=== PATIENT | female | born 1960 | race Two or more races ===

== ENCOUNTER 2021-04-20 10:02 | Outpatient (AMBR) | payer OTHER, SELFPAY ==
--- NOTE | 2021-04-13 11:42 | PTNOTE_ITS ---
PT OP Initial Eval Patient Information Visit Reasons: right shoulder post op Medical Diagnosis: S46.091D Treatment Dx #1: Right Shoulder Mobility Deficits Treatment Dx #2: Right Shoulder Weakness Start of Care: 04/13/21 Date of Onset: 03/07/21 Initial Assessment Subjective Pt is a 61 y/o female s/p right shoulder decompression and bicep tenodesis secondary to previous shoulder injuries from a fall. Pt stated that surgeon was unable to repair her rotator cuff tear and may need another procedure in ~ 3 months. Pt still has a lot of pain (8/10) with all activities. Pt has limitation with chores, lifting, cooking, cleaning, overhead motions, recreational activities, and self care activities. Objective Right Shoulder PROM Flexion: 90 deg with pain Abduction: 90 deg with pain ER and IR: NT Right Shoulder AROM Flexion: 53 deg Abduction: 25 deg ER and IR: unable Right Shoulder MMTs: grossly 2-/5 Right Scapula MMTs: grossly 2-/5 Assessment Pt demonstrate right shoulder and strength deficits s/p shoulder surgery leading to decline function. Pt will benefit from physical therapy to increase strength, ROM, and work on shoulder stability. 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 1) Increase right shoulder PROM WFL in 12 wks to prevent frozen shoulder 2) Increase right shoulder AROM flexion to 90 def in 12 wks to be able to perform shoulder height activities 3) Decrease shoulder pain to 2/10 in 12 wks to be able to perform chores 4) Increase right shoulder MMTs grossly 3+/5 in 12 wks to be able to perform self care activities 5) Indep with HEP Treatment Plan 1) Manual Therapy 2) Therapeutic Activities 3) Therapeutic Exercises 4) Modalities (ice, heat, estim) Frequency and Duration 2 x wk for 12 wks Certification Dates: 04/13/21 to 07/14/21 Office Procedures PT Procedures PT Date of Service: 04/13/21 OP PT Eval Mod Complex 30 minutes: Yes
--- NOTE | 2021-04-17 12:53 | PT.ODAYNRPT ---
PT Outpatient Daily Note Date of Service: 04/17/21 OP Daily Note Visit Reasons: right shoulder post op Outpatient Physical Therapy Treatment Date: 04/17/21 Subjective: Pt still has difficulty with doing her hair. Pt mention that she can move her arms low but unable to go high Objective: Please see flow chart for list of ther ex performed Assessment: tolerate exercises with minimal pain; post ice decrease shoulder pain and soreness Plan: Continue with PT Length of Time (minutes) of Treatment: 30 Minutes Office Procedures PT Procedures PT Date of Service: 04/13/21 OP PT Eval Mod Complex 30 minutes: Yes PT Procedures PT Date of Service: 04/17/21 Therapeutic Exercise 30 minutes: Yes
--- NOTE | 2021-04-20 11:35 | PT.ODAYNRPT ---
PT Outpatient Daily Note Date of Service: 04/20/21 OP Daily Note Visit Reasons: right shoulder post op Outpatient Physical Therapy Treatment Date: 04/20/21 Subjective: Pt still has difficulty with lifting her arm. Pt's pain is less and did feel better after last session Objective: Please see flow chart for list of ther ex performed Assessment: tolerate exercises with minimal pain; same exercises performed unable to attempt patsy due to pain with shoulder flexion beyond 30 deg Plan: Continue with PT Length of Time (minutes) of Treatment: 30 Minutes Office Procedures PT Procedures PT Date of Service: 04/13/21 OP PT Eval Mod Complex 30 minutes: Yes PT Procedures PT Date of Service: 04/20/21 Therapeutic Exercise 30 minutes: Yes PT Procedures PT Date of Service: 04/17/21 Therapeutic Exercise 30 minutes: Yes
== END 2021-04-25 23:59 | disposition home or self-care (01) ==
PROVIDERS: PCP Family Medicine; Referring Provider Family Medicine; Visit Provider Orthopaedic Surgery
DX: S46.091D Other injury of muscle(s) and tendon(s) of the rotator cuff of right shoulder, subsequent encounter (principal); M25.511 Pain in right shoulder; R53.1 Weakness; W19.XXXD Unspecified fall, subsequent encounter
CPT/HCPCS: 97110; 97162

== ENCOUNTER 2021-05-17 11:46 | Outpatient (AMBR) | payer OTHER, MEDICAID, SELFPAY ==
--- NOTE | 2021-05-01 10:04 | PT.ODAYNRPT ---
PT Outpatient Daily Note Date of Service: 05/01/21 OP Daily Note Visit Reasons: right shoulder post op Outpatient Physical Therapy Treatment Date: 05/01/21 Subjective: Pt reported sore from last time in the shoulder Shoulder was burning mainly on the surgical site Objective: Please see flowsheet for therex performed Assessment: Even though pt reported soreness in shoulder, today's focus was still on increasing PROM flexion and abduction as well as isometric strengthening. Pt responded well to passive movements in both directions with minimal pain or discomfort. Plan: Cont. w/ POC Length of Time (minutes) of Treatment: 30 Minutes Office Procedures PT Procedures PT Date of Service: 05/01/21 Therapeutic Exercise 30 minutes: Yes
--- NOTE | 2021-05-17 10:11 | PT.ODAYNRPT ---
PT Outpatient Daily Note Date of Service: 05/17/21 OP Daily Note Visit Reasons: right shoulder post op Outpatient Physical Therapy Treatment Date: 05/17/21 Subjective: Feeling good. Doc said that I am doing really good. Objective: Manual; PROM FLX, ABD, ER - 7min please see flowsheet for therex performed Assessment: Pt tolerated therex well with good activity tolerance. Increased resistance to bicep curls, digiflex, and clip from yellow to green due to increased strength. Pt performed all reps and sets on all exercises except Isometric ABD due to fatigue. Plan: continue with POC Length of Time (minutes) of Treatment: 30 Minutes Office Procedures PT Procedures PT Date of Service: 05/17/21 Therapeutic Exercise 30 minutes: Yes PT Procedures PT Date of Service: 05/01/21 Therapeutic Exercise 30 minutes: Yes
== END 2021-05-26 23:59 | disposition home or self-care (01) ==
PROVIDERS: PCP Orthopaedic Surgery; Referring Provider Orthopaedic Surgery; Visit Provider Orthopaedic Surgery
DX: S46.091D Other injury of muscle(s) and tendon(s) of the rotator cuff of right shoulder, subsequent encounter (principal); M25.561 Pain in right knee; R53.1 Weakness; W19.XXXD Unspecified fall, subsequent encounter
CPT/HCPCS: 97110

== ENCOUNTER 2021-06-20 11:09 | Outpatient (AMBR) | payer OTHER, MEDICAID, SELFPAY ==
--- NOTE | 2021-05-31 10:02 | PT.ODAYNRPT ---
PT Outpatient Daily Note Date of Service: 05/31/21 OP Daily Note Visit Reasons: RIGHT SHOULDER POST OP Outpatient Physical Therapy Treatment Date: 05/31/21 Subjective: pt states she can't comb her hair or do much with her shoulder. pt continues to have pain of the shoulder. Objective: see flow sheet. Assessment: observed pt during pendulums exercise and she has difficulty relaxing the shoulder in order to let the momentum flow. she is very guarded. attempted wand exercises within the ROM she has but was not able to lift more than 20 degrees from her lap due to complaints of pain. pt has pain all throughout treatment. Plan: continue POC per PT. Length of Time (minutes) of Treatment: 30 Minutes Office Procedures PT Procedures PT Date of Service: 05/31/21 Therapeutic Exercise 30 minutes: Yes
--- NOTE | 2021-06-04 13:07 | PT.ODAYNRPT ---
PT Outpatient Daily Note Date of Service: 06/04/2021 OP Daily Note Visit Reasons: RIGHT SHOULDER POST OP Outpatient Physical Therapy Treatment Date: 06/04/21 Subjective: pt states her helps her comb her hair due to pain and limited ROM of the RUE. Objective: see flow sheet. Assessment: pt has pain and discomfort of the R shoulder with all treatment. she can do the hand strengthening with no difficulty but when it involves her shoulder mobility she hesitates due to pain. with her wall slides stretch she is able to reach further up on the wall increasing her flexion ROM. Plan: continue POC per PT. Length of Time (minutes) of Treatment: 30 Minutes Office Procedures PT Procedures PT Date of Service: 05/31/21 Therapeutic Exercise 30 minutes: Yes PT Procedures PT Date of Service: 06/04/21 Therapeutic Exercise 30 minutes: Yes
--- NOTE | 2021-06-07 10:41 | PT.ODAYNRPT ---
PT Outpatient Daily Note Date of Service: 06/07/2021 OP Daily Note Visit Reasons: RIGHT SHOULDER POST OP Outpatient Physical Therapy Treatment Date: 06/07/21 Subjective: pt came in with pain of the shoulder. pt mentions other health issues she has and has not been eating. Objective: see flow sheet. Assessment: she used 2# weight for her biceps in which she had no difficulty with. her shoulder continues to cause pain with every motion. she is guarded due to pain. she is aware of her limitations. her flexion ROM with wall slides is good but that is the only she can do due to pain. Plan: continue POC per PT. Length of Time (minutes) of Treatment: 30 Minutes Office Procedures PT Procedures PT Date of Service: 05/31/21 Therapeutic Exercise 30 minutes: Yes PT Procedures PT Date of Service: 06/04/21 Therapeutic Exercise 30 minutes: Yes PT Procedures PT Date of Service: 06/07/21 Therapeutic Exercise 30 minutes: Yes
--- NOTE | 2021-06-20 12:58 | PT.ODS1RPT ---
PT OP Progress/Discharge Note Date of Service: 06/20/21 Progress Note/DC Note Progress Note/Discharge Note: DC Note Patient Information Visit Reasons: RIGHT SHOULDER POST OP Medical Diagnosis: S46.091D Treatment Dx #1: Right Shoulder Mobility Deficits Treatment Dx #2: Right Shoulder Weakness Service Continue Service or Discharge: Discharge Discharge Date: 06/20/21 Status Subjective: Pt's shoulder feels much better with less pain (3/10). Pt mention that she's been able to perform ADLs up to shoulder height. Pt has been able to perform self care, lift, cook, clean, and take care of her grandkids. Pt will be seeing the surgeon in a few weeks. At this time Pt feels comfortable being release from care with exercises to continue at home. Objective: Right Shoulder PROM Flexion: 150 deg Abduction: 90 deg External Rotation: 80 deg Internal Rotation: 70 deg Right Shoulder AROM Flexion: 110 deg Abduction: 80 deg External Rotation: 60 deg Internal Rotation: 70 deg Right Shoulder MMTs: grossly 3/5 Right Scapula MMTs: grossly 3/5 Assessment: Pt's overall shoulder ROM and strength has improved since starting physical therapy allowing her to perform shoulder height ADLs, chores, and self care activities. Pt will no longer benefit from physical therapy due to meeting set goals. Pt was instructed on HEP last session and educated to continue exercises to maintain overall mobility. Pt performed all exercises safely, thank you for your referrals. Plan: D/C home with HEP and follow up with MD DE LA PAZ Office Procedures PT Procedures PT Date of Service: 05/31/21 Therapeutic Exercise 30 minutes: Yes PT Procedures PT Date of Service: 06/04/21 Therapeutic Exercise 30 minutes: Yes PT Procedures PT Date of Service: 06/07/21 Therapeutic Exercise 30 minutes: Yes PT Procedures PT Date of Service: 06/20/21 Therapeutic Exercise 30 minutes: Yes
== END 2021-06-26 23:59 | disposition home or self-care (01) ==
PROVIDERS: PCP Orthopaedic Surgery; Referring Provider Orthopaedic Surgery; Visit Provider Orthopaedic Surgery
DX: S46.091D Other injury of muscle(s) and tendon(s) of the rotator cuff of right shoulder, subsequent encounter (principal); M25.511 Pain in right shoulder; R53.1 Weakness; W19.XXXD Unspecified fall, subsequent encounter
CPT/HCPCS: 97110

== ENCOUNTER → 2024-09-29 | Outpatient (CLI) | payer OTHER, MEDICAID, SELFPAY ==
--- NOTE | 2024-09-29 15:36 | XR_ITS ---
Examination: Abdomen AP single view Technique: AP portable supine abdomen, single view Exam date and time: September 29, 2024 1544 hours INDICATIONS: Epigastric pain beginning 2 years ago. FINDINGS: Moderate to large amounts of stool throughout the colon No obstruction Surgical clips upper right abdomen No free air IMPRESSION: Moderate to large amounts of stool throughout the colon
[2024-09-29 16:17] LABS: Collection Type, Urine Clean Catch
[2024-09-29 16:54] LABS: Basophils # (Auto) 0.1 Thou/mm3 (0.0-0.2); Basophils % (Auto) 1 % (0-2.5); Eosinophils # (Auto) 0.2 Thou/mm3 (0.0-0.5); Eosinophils % (Auto) 2 % (0-10); Hematocrit 41.3 % (36.0-46.0); Hemoglobin 13.6 g/dL (12.0-16.0); Immature Granulocytes % (Auto) 1 % (0-0); Immature Granulocytes Auto 0.06 Thou/mm3 (0.00-0.00); Lymphocytes # (Auto) 4.5 Thou/mm3 (1.0-4.8); Lymphocytes % (Auto) 37 % (10-50); Mean Corpuscular HGB Conc 32.9 g/dl (31.0-37.0); Mean Corpuscular Hemoglobin 27.5 pg (25.0-35.0); Mean Corpuscular Volume 84 fL (80-100); Monocytes # (Auto) 0.9 Thou/mm3 (0.0-0.8); Monocytes % (Auto) 7 % (0-12); Neutrophils # (Auto) 6.3 Thou/mm3 (1.8-7.7); Neutrophils % (Auto) 53 % (37-80); Nucleated Red Blood Cell % 0 /100 WBC (0); Platelet Count 251 Thou/mm3 (140-440); RDW Standard Deviation 42.4 fL (36.4-46.3); Red Blood Count 4.94 Miln/mm3 (4.00-5.20); White Blood Count 11.9 Thou/mm3 (3.6-11.0)
[2024-09-29 17:05] LABS: Amylase 64 U/L (30-118); Lipase 33 U/L (12-53)
[2024-09-29 17:06] LABS: Bilirubin,Urine Negative (Negative); Blood,Urine Negative (Negative); Clarity,Urine Clear (Clear/Hazy); Color,Urine Lt-Yellow (Lt Yel-Yel); Glucose, Urine 4+ (Negative); Ketones,Urine Negative (Negative); Leukocyte Esterase,Urine Negative (Negative); Nitrite,Urine Negative (Negative); Protein,Urine Negative (Neg - Trace); RBC,Urine 13 /hpf (0-3); Specific Gravity,Urine 1.045 (1.001-1.035); Squamous Epithelial Cell,Urine < 1 /hpf (0-5); Urobilinogen,Urine Negative mg/dL (0.0-1.0); WBC,Urine 2 /hpf (0-5)
== END | disposition home or self-care (01) ==
LOC: CDIM 15:24 → COPL 15:53
PROVIDERS: PCP Student in an Organized Health Care Education/Training Program; Referring Provider Specialist; Visit Provider Radiology Diagnostic Radiology
DX: K59.00 Constipation, unspecified (principal); R10.9 Unspecified abdominal pain
CPT/HCPCS: 36415; 74018; 81001; 82150; 83690; 85025

== ENCOUNTER 2024-10-01 07:45 | Day surgery (SDC) | payer OTHER, MEDICAID, SELFPAY ==
[2024-09-30 14:42] VITALS: BMI 32.1
[2024-10-01 08:25] VITALS: BP 127/84; PULSE 85; RESP 20; TEMP 36.7; O2SAT 94; BMI 33.0
--- NOTE | 2024-10-01 08:25 | SUR.PREOP ---
Patient reports that she administered Lantus 30 units SQ this morning. Blood glucose 139m mg/dL. She denies s/s of hypoglycemia.
[2024-10-01 09:30] VITALS: BP 152/95; PULSE 88; RESP 22; O2SAT 92
[2024-10-01] MEDS: MIDAZOLAM INJ 1 MG/ML VIAL 2 ML (ASD USE ONLY) 2 MG IV (09:31)
[2024-10-01] MEDS: fentaNYL CIT INJ 50 mCg/ML AMP 2ML (ASD USE ONLY) IV (09:31)
[2024-10-01] MEDS: DiphenhydrAMINE INJ 50 MG/ML VIAL 25 MG IV (09:31)
[2024-10-01 09:35] VITALS: BP 158/111; PULSE 85; RESP 13; O2SAT 95
[2024-10-01 09:45] VITALS: BP 136/88; PULSE 87; RESP 15; TEMP 36.6; O2SAT 93
[2024-10-01 09:55] VITALS: BP 140/89; PULSE 85; RESP 12; O2SAT 98
[2024-10-01 10:05] VITALS: BP 138/85; PULSE 85; RESP 15; O2SAT 95
== END 2024-10-01 10:30 | disposition home or self-care (01) ==
PROVIDERS: PCP Family Medicine; Referring Provider Specialist; Visit Provider Specialist
PROC: (CPT 43239; principal; 2024-10-01 10:45)
DX: K20.90 Esophagitis, unspecified without bleeding (principal); K29.70 Gastritis, unspecified, without bleeding; K29.50 Unspecified chronic gastritis without bleeding; K31.89 Other diseases of stomach and duodenum
CPT/HCPCS: 43239; A4649; J1200; J2250; J3010

== ENCOUNTER 2024-10-14 06:35 | Day surgery (SDC) | payer OTHER, MEDICAID, SELFPAY ==
[2024-10-12 09:15] VITALS: BMI 32.1
[2024-10-13 12:00] LABS: Basophils # (Auto) 0.1 Thou/mm3 (0.0-0.2); Basophils % (Auto) 1 % (0-2.5); Eosinophils # (Auto) 0.2 Thou/mm3 (0.0-0.5); Eosinophils % (Auto) 2 % (0-10); Hematocrit 45.6 % (36.0-46.0); Immature Granulocytes % (Auto) 0 % (0-0); Immature Granulocytes Auto 0.04 Thou/mm3 (0.00-0.00); Lymphocytes # (Auto) 3.4 Thou/mm3 (1.0-4.8); Lymphocytes % (Auto) 38 % (10-50); Mean Corpuscular HGB Conc 32.9 g/dl (31.0-37.0); Mean Corpuscular Hemoglobin 27.4 pg (25.0-35.0); Mean Corpuscular Volume 83 fL (80-100); Monocytes # (Auto) 0.7 Thou/mm3 (0.0-0.8); Monocytes % (Auto) 8 % (0-12); Neutrophils # (Auto) 4.5 Thou/mm3 (1.8-7.7); Neutrophils % (Auto) 50 % (37-80); Nucleated Red Blood Cell % 0 /100 WBC (0); Platelet Count 240 Thou/mm3 (140-440); RDW Standard Deviation 42.8 fL (36.4-46.3); Red Blood Count 5.47 Miln/mm3 (4.00-5.20); White Blood Count 8.9 Thou/mm3 (3.6-11.0)
[2024-10-13 12:06] LABS: Anion Gap 9 (7-16); BUN/Creatinine Ratio 30 Ratio (12-20); Blood Urea Nitrogen 18 mg/dL (9-23); Calcium 9.6 mg/dL (8.3-10.6); Carbon Dioxide 26.1 mMol/L (20.0-31.0); Chloride 104 mMol/L (98-107); Creatinine (Component) 0.6 mg/dL (0.6-1.3); Estimated Creatinine Clearance 87.8 mL/min (>60); Glucose 159 mg/dL (74-106); Osmolality,Calculated 282 (275-295); Partial Thromboplastin Time 27.1 Seconds (22.0-36.0); Potassium 3.9 mMol/L (3.4-5.1); Prothrombin Time 10.9 Seconds (9.0-12.2); Sodium 139 mMol/L (136-145); eGFR > 60 See Note
[2024-10-13 12:26] LABS: COVID-19 Antigen (In-House) Negative (Negative)
[2024-10-14] VITALS (17 sets, daily range): BP systolic 121–164; BP diastolic 77–105; PULSE 85–95; RESP 12–90; TEMP 36.5–36.7; O2SAT 92–98
[2024-10-14] MEDS: DIAZEPAM 5 MG TABLET PO (07:31)
--- NOTE | 2024-10-14 08:10 | PD.CARDCATH ---
Cardiac Cath Procedure Procedure Narrative Date of the procedure 10/14/2024 Title of the procedure 1. Left heart catheterization 2. Left coronary angiogram 3. Right coronary angiogram 4. Left ventriculogram 5. Conscious sedation 6. Radiographic interpretation supervision 7. Ultrasound guidence for Right radial access Indication for the procedure This is a 64-year-old female with past medical history of hypertension hyperlipidemia and diabetes complains of atypical recurrent chest pain Cardiolite scan was equivocal therefore cardiac catheter and cholangiogram recommended in view of her multiple risk factors and ongoing chest pain Procedure This is done in the cardiac lab under continuous electrocardiographic monitoring Intermittent blood pressure monitoring right radial arterial access obtained using modified Seldinger technique 6 [place] radial sheath was placed under ultrasound guidence TIG catheter was used for selective injection of the Left coronary artery TIG cather was used for selective injection of the Right coroanry artery TIG cather was used for LV gram Findings Hemodynamics Left ventricular systolic function is 55% Left ventricular end-diastolic pressure is 16 mmHg Gradient across the aortic valve is 5 mm gradient Coronary anatomy Right Dominance Left main coronary artery is Normal Left anterior descending artery is Distal luminal irregularities close to the apex Diagonal vessel is Luminal regularities Left circumflex artery is Normal Obtuse marginal vessel is Luminal regularities Right coronary artery is Has an anterior takeoff, mid segment 30% lesion Posterior descending artery is Luminal regularities Conclusion No significant coronary lesion Recommendation Continue medical management
[2024-10-14] MEDS: ACETAMINOPHEN 325 MG TABLET 650 MG PO (10:35)
== END 2024-10-14 11:55 | disposition home or self-care (01) ==
PROVIDERS: PCP Student in an Organized Health Care Education/Training Program; Referring Provider Internal Medicine; Visit Provider Internal Medicine
PROC: (CPT 93458; principal; 2024-10-14 07:30)
DX: I25.118 Atherosclerotic heart disease of native coronary artery with other forms of angina pectoris (principal); E11.9 Type 2 diabetes mellitus without complications; E78.5 Hyperlipidemia, unspecified; I10 Essential (primary) hypertension
CPT/HCPCS: 93458; 36415; 80048; 85025; 85610; 85730; 87811; 93005; 99152; A4216; A4649; C1769; C1887; C1894; J0171; J0461; J0583; J1643; J2250; J2310; J2371; J3010; J3490; Q9967; A9270; J1644; J2305

== ENCOUNTER → 2024-11-18 | Outpatient (CLI) | payer OTHER, MEDICAID, SELFPAY ==
[2024-11-18 16:33] LABS: Glucose Estimated Average 301 mg/dL (80-131); Hemoglobin A1C 12.1 % Hgb (4.8-6.0)
[2024-11-18 16:39] LABS: Alanine Aminotransferase 14 U/L (10-49); Albumin, Serum 4.5 gm/dL (3.4-4.8); Albumin/Globulin Ratio 1.8 (1.2-2.2); Alkaline Phosphatase 100 U/L (46-116); Anion Gap 9 (7-16); Aspartate Amino Transferase 19 U/L (0-34); BUN/Creatinine Ratio 27 Ratio (12-20); Bilirubin,Total 0.4 mg/dL (0.3-1.2); Blood Urea Nitrogen 16 mg/dL (9-23); Calcium 9.4 mg/dL (8.3-10.6); Calcium (Corrected) 9.4 mg/dL (8.5-10.1); Carbon Dioxide 31.1 mMol/L (20.0-31.0); Chloride 103 mMol/L (98-107); Cholesterol 169 mg/dL (132-200); Creatinine (Component) 0.6 mg/dL (0.6-1.3); Globulin 2.5 gm/dL (2.3-3.5); Glucose 93 mg/dL (74-106); HDL Cholesterol 56 mg/dL (40-60); LDL Cholesterol,Calculated 77 mg/dL (0-130); Osmolality,Calculated 286 (275-295); Potassium 3.7 mMol/L (3.4-5.1); Sodium 143 mMol/L (136-145); Triglycerides 180 mg/dL (30-150); eGFR > 60 See Note
== END | disposition home or self-care (01) ==
LOC: COPL 14:15
PROVIDERS: PCP Student in an Organized Health Care Education/Training Program; Referring Provider Student in an Organized Health Care Education/Training Program; Visit Provider Student in an Organized Health Care Education/Training Program
DX: E11.65 Type 2 diabetes mellitus with hyperglycemia (principal); I10 Essential (primary) hypertension; E78.2 Mixed hyperlipidemia
CPT/HCPCS: 36415; 80053; 80061; 83036

== ENCOUNTER → 2024-12-21 | Outpatient (CLI) | payer OTHER, SELFPAY ==
[2024-12-21 11:05] LABS: Collection Type, Urine Clean Catch; Squamous Epithelial Cell,Urine 0 /hpf (0-5)
[2024-12-21 11:29] LABS: Basophils # (Auto) 0.1 Thou/mm3 (0.0-0.2); Basophils % (Auto) 1 % (0-2.5); Eosinophils # (Auto) 0.2 Thou/mm3 (0.0-0.5); Eosinophils % (Auto) 3 % (0-10); Hematocrit 44.3 % (36.0-46.0); Hemoglobin 14.3 g/dL (12.0-16.0); Immature Granulocytes % (Auto) 0 % (0-0); Immature Granulocytes Auto 0.02 Thou/mm3 (0.00-0.00); Lymphocytes # (Auto) 3.4 Thou/mm3 (1.0-4.8); Lymphocytes % (Auto) 39 % (10-50); Mean Corpuscular HGB Conc 32.3 g/dl (31.0-37.0); Mean Corpuscular Hemoglobin 27.8 pg (25.0-35.0); Mean Corpuscular Volume 86 fL (80-100); Monocytes # (Auto) 0.7 Thou/mm3 (0.0-0.8); Monocytes % (Auto) 8 % (0-12); Neutrophils # (Auto) 4.5 Thou/mm3 (1.8-7.7); Neutrophils % (Auto) 50 % (37-80); Nucleated Red Blood Cell % 0 /100 WBC (0); Platelet Count 229 Thou/mm3 (140-440); RDW Standard Deviation 43.5 fL (36.4-46.3); Red Blood Count 5.15 Miln/mm3 (4.00-5.20); White Blood Count 8.8 Thou/mm3 (3.6-11.0)
[2024-12-21 11:33] LABS: Partial Thromboplastin Time 27.5 Seconds (22.0-36.0); Prothrombin Time 10.9 Seconds (9.0-12.2)
[2024-12-21 11:33] LABS: Bilirubin,Urine Negative (Negative); Blood,Urine Negative (Negative); Clarity,Urine Clear (Clear/Hazy); Color,Urine Lt-Yellow (Lt Yel-Yel); Glucose, Urine 4+ (Negative); Ketones,Urine Negative (Negative); Leukocyte Esterase,Urine Negative (Negative); Nitrite,Urine Negative (Negative); Protein,Urine Negative (Neg - Trace); RBC,Urine 2 /hpf (0-3); Specific Gravity,Urine 1.032 (1.001-1.035); Urobilinogen,Urine Negative mg/dL (0.0-1.0); WBC,Urine 1 /hpf (0-5)
[2024-12-21 13:25] LABS: Glucose Estimated Average 269 mg/dL (80-131)
[2024-12-21 13:33] LABS: Creatinine,Random Urine 58 mg/dL (30-125); Protein Total, Random Urine 8 mg/dL (1-14)
[2024-12-21 13:34] LABS: Folate 22.52 ng/mL (>5.38); Vitamin B12 548 pg/mL (211-911); Vitamin D 25 Hydroxy Total 33.2 ng/mL (7.3-40.2)
[2024-12-21 13:46] LABS: Alanine Aminotransferase 14 U/L (10-49); Albumin, Serum 4.2 gm/dL (3.4-4.8); Albumin/Globulin Ratio 1.5 (1.2-2.2); Anion Gap 8 (7-16); Aspartate Amino Transferase 19 U/L (0-34); BUN/Creatinine Ratio 25 Ratio (12-20); Bilirubin,Total 0.3 mg/dL (0.3-1.2); Blood Urea Nitrogen 15 mg/dL (9-23); Calcium 9.6 mg/dL (8.3-10.6); Calcium (Corrected) 9.6 mg/dL (8.5-10.1); Carbon Dioxide 31.5 mMol/L (20.0-31.0); Cardiac Risk Estimate 3.5 RATIO (3.7-5.6); Chloride 104 mMol/L (98-107); Cholesterol 193 mg/dL (132-200); Creatinine (Component) 0.6 mg/dL (0.6-1.3); Free T4 (Free Thyroxine) 1.41 ng/dL (0.89-1.76); Globulin 2.8 gm/dL (2.3-3.5); Glucose 84 mg/dL (74-106); HDL Cholesterol 55 mg/dL (40-60); LDL Cholesterol,Calculated 75 mg/dL (0-130); Osmolality,Calculated 284 (275-295); Potassium 4.1 mMol/L (3.4-5.1); Sodium 143 mMol/L (136-145); Triglycerides 313 mg/dL (30-150); eGFR > 60 See Note
[2024-12-21 14:29] LABS: Alkaline Phosphatase 88 U/L (46-116)
== END | disposition home or self-care (01) ==
LOC: COPL 10:25
PROVIDERS: PCP Student in an Organized Health Care Education/Training Program; Referring Provider Student in an Organized Health Care Education/Training Program; Visit Provider Student in an Organized Health Care Education/Training Program
DX: E11.65 Type 2 diabetes mellitus with hyperglycemia (principal); I10 Essential (primary) hypertension; E78.2 Mixed hyperlipidemia
CPT/HCPCS: 36415; 80053; 80061; 81001; 82306; 82570; 82607; 82746; 83036; 84156; 84439; 84443; 85025; 85610; 85730

== ENCOUNTER 2025-02-20 19:53 | Emergency (ER) | payer OTHER, MEDICAID, SELFPAY ==
[2025-02-20 19:54] VITALS: BMI 33.2
--- NOTE | 2025-02-20 19:59 | EKG_ITS ---
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
[2025-02-20 20:06] VITALS: BP 164/88; PULSE 87; RESP 24; TEMP 37.2; O2SAT 95
--- NOTE | 2025-02-20 20:21 | PD.EDRME ---
Rapid Medical Screening Exam RME Arrival date/time: 02/20/25 19:53 Chief Complaint: Chest Pain Time Seen by Provider: 02/20/25 20:12 Vital signs: Vital Signs Temperature 99.0 F 02/20/25 20:06 Pulse Rate 87 02/20/25 20:06 Respiratory Rate 24 H 02/20/25 20:06 Blood Pressure 164/88 H 02/20/25 20:06 Pulse Oximetry (%) 95 02/20/25 20:06 Oxygen Delivery Method Room Air 02/20/25 20:06 E Narrative: Chest pain, shortness of breath x3 days worsening today. Also reports lower back pain.
--- NOTE | 2025-02-20 20:22 | XR_ITS ---
Examination: AP chest single view Technique with a V portable upright chest single view Standing time: February 20, 20252047 hours INDICATIONS: Chest pain shortness of breath today FINDINGS: Suspicious for mild pneumonia right base No significant cardiac enlargement Mild prominent central pulmonary arteries Intact osseous structures IMPRESSION: Suspicious for early pneumonia right base
[2025-02-20 20:41] VITALS: BP 186/123; PULSE 88; RESP 19; O2SAT 97
--- NOTE | 2025-02-20 20:47 | PD.EDADULT ---
ED General RME/HPI General Chief complaint: Chest Pain Stated complaint: CHEST PAIN, SOB X 2 DAYS WORSEN TODAY Time Seen by Provider: 02/20/25 20:12 Arrival date/time: 02/20/25 19:53 CC: Chest pain HPI site-specific the left anterior chest onset the yesterday, the worsening. Patient has no prior history of similar type chest pain. Chest pain is reproducible with palpation worse with deep inhalation or cough. Patient denies fever chills shortness of breath difficulty breathing but is also complaining of mid back pain. RME / HPI RME / HPI narrative: Chest pain, shortness of breath x3 days worsening today. Also reports lower back pain. Related Data Home Medications ?Medication ?Instructions ?Recorded ?Confirmed duloxetine 30 mg capsule,delayed 30 mg PO QDAY 02/24/23 10/14/24 release losartan 50 mg tablet (Cozaar) 50 mg PO QDAY 02/24/23 10/14/24 atorvastatin 80 mg tablet 80 mg PO QDAY 10/01/24 10/14/24 metformin 500 mg tablet 500 mg PO QDAY 10/01/24 10/14/24 Held on 10/14/24. Instructions: Resume on 10/16/24. amitriptyline 25 mg tablet 25 mg PO QDAY 10/14/24 10/14/24 amoxicillin 500 mg capsule 500 mg PO TID 10/14/24 10/14/24 aspirin 81 mg tablet 81 mg PO QDAY 10/14/24 10/14/24 docusate sodium 250 mg capsule 250 mg PO QDAY 10/14/24 10/14/24 empagliflozin 25 mg tablet 25 mg PO QAM 10/14/24 10/14/24 (Jardiance) fenofibrate 160 mg tablet 160 mg PO QDAY 10/14/24 10/14/24 insulin human U-100 NPH-regulr subcut 10/14/24 70-30 mix 100 unit/mL subcutaneous susp (Humulin 70/30 U-100 Insulin) pantoprazole 40 mg tablet,delayed 40 mg PO QDAY 10/14/24 10/14/24 release tramadol 50 mg tablet 50 mg PO Q6H PRN Pain 10/14/24 10/14/24 Previous Rx's ?Medication ?Instructions ?Recorded ibuprofen 800 mg tablet 800 mg PO TID PRN pain #30 tabs 07/25/23 cephalexin 500 mg capsule 500 mg PO TID #21 caps 02/21/25 Allergies Allergy/AdvReac Type Severity Reaction Status Date / Time No Known Allergies Allergy Verified 02/20/25 19:57 Review of Systems Review of Systems Narrative Review of Systems: GEN: No fever, no chills, no weight loss EYES: No discharge, no visual changes, no pain HEENT: No ear pain, no congestion, no sore throat PULM: No shortness of breath, no cough, no congestion CV: + chest pain, no dyspnea on exertion, no palpitations GI: No nausea, no vomiting, no diarrhea, no pain, no constipation : No frequency, no urgency, no dysuria MUSC/SKEL: No joint pain, no back pain SKIN: No rash PSYCH: No hallucinations, no depression HEME/LYMPH: No easy bleeding or bruising tendencies NEURO: No weakness, no headache Past Medical History Past Medical History NEUROLOGIC: Positive Seizures and Head Trauma; Negative Neurological Disorders or Migraine CARDIAC: Positive Cardiac Disorders, Hypercholesterolemia, Hypertension and Varicose Veins; Negative Congestive Heart Failure, Edema, Cellulitis or Deep Vein Thrombosis RESPIRATORY: Positive Bronchitis; Negative Chronic Obstructive Pulmonary Disease (COPD), Pneumonia, Tuberculosis, Pulmonary Embolism or Sleep Apnea GASTROINTESTINAL: Positive Gastrointestinal Disorders, Gall Bladder Disease (removed gall bladder), Diverticulitis, Hemorrhoids, Gastroesophageal Reflux Disease and Obesity; Negative Hepatitis or Ulcer (Denies) GENITOURINARY: Negative Genitourinary Disorders or Renal Disease REPRODUCTIVE: Positive Previous Pregnancies; Negative Pelvic Inflammatory Disease MUSCULOSKELETAL: Positive Musculoskeletal Disorders, Arthritis and Carpal Tunnel Syndrome ENT: Positive Cataracts and Head Trauma ENDOCRINE: Positive Endocrine Disorders and Diabetes Mellitus Type 2; Negative Diabetes Mellitus Type 1 or Hypothyroidism HEMATOLOGIC: Negative Blood Disorders or Anemia PSYCHO/SOCIAL: Positive Depression (from traumatic episode, per patient is better) and Anxiety ( ) OTHER HISTORY: Positive Hospitalization; Negative Autoimmune Disease, Down Syndrome, Developmental Delay, Shingles, Falls, Blood Transfusions, Anesthesia Reactions, Organ Transplant, Chemotherapy, Radiation Therapy, MRSA, Chicken Pox, Measles, Mumps, Clostridium Difficile or Cancer Family History FAMILY HISTORY: Positive Family Cardiac Disorders, Family Gastrointestinal Problems, Family Cancer and Family Surgery; Negative Family Psychiatric Problems, Family Respiratory Disorders or Family Anesthesia Reaction Surgical History SURGICAL: Positive Vascular Surgery (right leg per patient vein closed up), Eye Surgery, Abdominal Surgery, Hysterectomy, Tubal Ligation and Section; Negative Cardiac Surgery, Pacemaker, Thyroidectomy, Ear Surgery, Joint Replacement, Neurologic Surgery or Organ Transplant Social History SMOKING STATUS: Never smoker SUBSTANCE USE: does not use ED Exam Narrative Physical exam: [General: Obese in mild discomfort but not in any acute distress Head normocephalic HEENT: Within acceptable limits Neck is supple nontender Chest equal chest rise, site-specific tenderness to palpation to the costosternal junction left side mid sternum. No other pain with palpation. Respiratory: Clear to auscultation no wheezes crackles or rubs CV: Rate rhythm is regular no murmurs rubs or clicks Abdomen is distended secondary to body habitus soft nontender no masses positive bowel sounds all 4 quadrants Back: No CVA tenderness no spinous process tenderness from cervical spine thoracic and lumbar spine Skin: Intact no petechiae rash induration ulceration or crepitus Extremities: Moving all extremity against resistance cap refill less than 2 seconds neurosensory intact. No lower extremity edema Neuro: Awake alert oriented x3 Glascow coma 15 no focal deficits] Course Course Course Narrative: Patient has a heart score of 4 Quality Measures none Orders Category Date Time Status EKG (ED ONLY) *Do not use* NOW Care 02/20/25 19:59 Completed Saline [Insert IV] NOW Care 02/20/25 20:46 Completed CXR [XR chest 1V] Stat Exams 02/20/25 20:22 Completed EKG (ED Only) Stat Exams 02/20/25 19:59 Draft BNP [B-Type Natriuretic Peptide] Stat Lab 02/20/25 20:30 Completed CBC Stat Lab 02/20/25 20:30 Completed CMP [Comprehensive Metabolic Panel] Stat Lab 02/20/25 20:30 Completed Drug Screen,Urine Stat Lab 02/20/25 20:48 Completed LDH (Lactate Dehydrogenase) Stat Lab 02/20/25 20:30 Completed Magnesium Stat Lab 02/20/25 20:30 Completed Partial Thromboplastin Time Stat Lab 02/20/25 20:30 Completed Prothrombin Time with INR Stat Lab 02/20/25 20:30 Completed Troponin I Stat Lab 02/20/25 20:30 Completed Troponin I Stat Lab 02/20/25 23:27 Completed Urinalysis Stat Lab 02/20/25 20:48 Completed Ketorolac Inj [Toradol Inj] Med 02/20/25 20:46 Discontinued 15 mg IVP X1 ONE Morphine Inj Med 02/20/25 21:26 Discontinued 4 mg IVP X1 ONE Ondansetron Inj [Zofran Inj] Med 02/20/25 21:26 Discontinued 4 mg IV X1 ONE cefTRIAXone/D5w 1gm IV premix [Rocephin/D5w 1gm IV Med 02/21/25 01:09 Discontinued premix] 1 gm in 50 ml IV X1 Vital Signs Vital signs: Vital Signs Temperature 99.0 F 02/20/25 20:06 Pulse Rate 87 02/20/25 20:06 Respiratory Rate 24 H 02/20/25 20:06 Blood Pressure 164/88 H 02/20/25 20:06 Pulse Oximetry (%) 95 02/20/25 20:06 Oxygen Delivery Method Room Air 02/20/25 20:06 Discharge Plan Plan Patient Disposition: HOME (Self Care) Patient condition on transfer: Stable Prescriptions/Referrals Prescriptions/Med Rec: New cephalexin 500 mg capsule 500 mg PO TID Qty: 21 0RF No Action amoxicillin 500 mg Capsule 500 mg PO TID Humulin 70/30 U-100 Insulin 100 unit/mL (70-30) Suspension SUBCUT tramadol 50 mg Tablet 50 mg PO Q6H PRN (Reason: Pain) amitriptyline 25 mg Tablet 25 mg PO QDAY pantoprazole 40 mg Tablet,Delayed Release (Dr/Ec) 40 mg PO QDAY aspirin 81 mg Tablet 81 mg PO QDAY docusate sodium 250 mg Capsule 250 mg PO QDAY fenofibrate 160 mg Tablet 160 mg PO QDAY Jardiance 25 mg Tablet 25 mg PO QAM losartan [Cozaar] 50 mg Tablet 50 mg PO QDAY duloxetine 30 mg capsule,delayed release(DR/EC) 30 mg PO QDAY Patient Comments: TAKE 1 CAPSULE BY MOUTH ONCE A DAY DIRECTED ibuprofen 800 mg tablet 800 mg PO TID PRN (Reason: pain) Qty: 30 0RF metformin 500 mg Tablet 500 mg PO QDAY atorvastatin 80 mg tablet 80 mg PO QDAY Patient Comments: TOME 1 TABLETA POR V A ORAL TODOS LOS D AL ACOSTARSE Referrals: Kerry Brown NP [Primary Care Provider] - 02/24/25 (To get the results of the urine culture.) Problem List Clinical Impression: Atypical chest pain, Dysuria Patient/Caregiver Discharge Instructions Education Materials: Dysuria, ED Chest Pain, Uncertain Cause Additional Instructions: General Adult Discharge Instructions(Nicaraguan) Hugo ambrocio sido dado de franklyn del [facility] sin embargo hay algunas cosas que debe hacer para asegurarse de que usted continue recibiendo el cuidado adecuado. Por favor jose las siguientes instrucciones con atenci?n: 1. Si es que le dieron alguna prescripci?n (medicamento), asegurese de ir a la farmacia de cabrales preferencia, llenar el medicamento y tomarlo conforme a las instrucciones. 2. Leas las instrucciones de franklyn con mucho cuidado dado que contienen informaci?n importante para cabrales radha y cuidado.3. REGRESE AL [facility]O DE [facility]GENCIA SI tiene alg?n tipo de problema o preocupaci?n. [facility] incluye dirk no esta limitado a fiebre, mucho dolor abdominal, dolor de pecho, mucho dolor de sho, falta de aire, sangrado incontrolable, nauseas o vomitos incontrolables, inhabilidad de tolerar alimentos, o cualquier otro tipo de condici?n que le donnell cuestionar cabrales radha. 4. Asegurese de seguir con cabrales medico primario (tambien llamado medico de carlitos) o con el medico especialista que le indicaron al momento del franklyn en 3 a 5 orozco dado que esta es la mejor manera de asegurar que luan recibiendo el mejor cuidado medico. 5. Si es que tiene un telefono inteligente (smartphone) revise la pagina web o aplicaci?n GoodRx antes de pagar por lam prescripciones (medicinas) dado que asi podr?a encontrar un cup?n para que lam medicinas jarrett menos costosas. El servicio es gratuito. Le agradecemos cabrales visita el bharti de sharla y esperamos que cabrales radha mejore. Please follow-up with your primary care in the next 72 hours we can get the results of the urine culture please Print Language: Nicaraguan Stand Alone Forms: [employer]ura Award Info., Patient Portal Info Letter MDM Patient Acuity High Acuity (complete MDM) Narrative: Patient has a history of diabetes hypertension hyperlipidemia with a workup for chest pain in September, for the same complaint. All of which was negative. Clinical Information Provided by: patient and spouse Medical Records reviewed [facility] EKG EKG Interpretation(s): EKG performed at 2001 shows a ventricular rate of 88 IL interval 146 QRS of 86 QTc of 425 sinus rhythm borderline EKG. Labs Lab(s) Interpretation(s): CBC shows no acute leukocytosis anemia thrombocytopenia Coags within acceptable limits CMP shows no [place] electrolyte imbalances elevated glucose at 352 no transaminitis or T. bili elevation Troponin at 0.034 BNP at 62 Urine shows a spec gravity 1.0424+ glucose no signs of infection UDS is negative Imaging Imaging Interpretation(s): Chest x-ray is interpreted by radiology shows a questionable right lower lobe pneumonia. Note: Patient has no respiratory symptoms including cough fever chills shortness of breath or difficulty breathing no leukocytosis. Medication Administration(s) Medication Administration History Discontinued Medications Ceftriaxone Sodium/Dextrose (Rocephin/D5w 1gm Iv Premix) 1 gm in 50 mls @ 100 mls/hr IV X1 ONE Stop: 02/21/25 01:38 Last Admin: 02/21/25 01:15 Dose: 100 mls/hr Documented By: ALBERT Ketorolac Tromethamine (Ketorolac Inj 30 Mg/Ml Vial) 15 mg IVP X1 ONE Stop: 02/20/25 20:47 Last Admin: 02/20/25 21:00 Dose: 15 mg Documented By: ALBERT Morphine Sulfate (Morphine Sulf Inj 10 Mg/Ml Vial) 4 mg IVP X1 ONE Stop: 02/20/25 21:27 Last Admin: 02/20/25 21:45 Dose: 4 mg Documented By: ALBERT Ondansetron HCl (Ondansetron Inj 2 Mg/Ml Inj 2 Ml) 4 mg IV X1 ONE; Protocol Stop: 02/20/25 21:27 Last Admin: 02/20/25 21:46 Dose: 4 mg Documented By: ALBERT
[2025-02-20 20:56] LABS: Collection Type, Urine Clean Catch; RBC,Urine 0 /hpf (0-3); Squamous Epithelial Cell,Urine 0 /hpf (0-5); WBC,Urine 0 /hpf (0-5)
[2025-02-20 20:57] LABS: B-Type Natriuretic Peptide 62 pg/mL (0-100)
[2025-02-20 20:59] LABS: Alanine Aminotransferase 32 U/L (10-49); Albumin, Serum 4.2 gm/dL (3.4-4.8); Albumin/Globulin Ratio 1.5 (1.2-2.2); Alkaline Phosphatase 89 U/L (46-116); Anion Gap 7 (7-16); Aspartate Amino Transferase 27 U/L (0-34); BUN/Creatinine Ratio 16 Ratio (12-20); Basophils # (Auto) 0.1 Thou/mm3 (0.0-0.2); Basophils % (Auto) 1 % (0-2.5); Bilirubin,Total 0.5 mg/dL (0.3-1.2); Blood Urea Nitrogen 13 mg/dL (9-23); Calcium 9.6 mg/dL (8.3-10.6); Calcium (Corrected) 9.6 mg/dL (8.5-10.1); Chloride 106 mMol/L (98-107); Creatinine (Component) 0.8 mg/dL (0.6-1.3); Eosinophils # (Auto) 0.2 Thou/mm3 (0.0-0.5); Eosinophils % (Auto) 3 % (0-10); Estimated Creatinine Clearance 63.5 mL/min (>60); Globulin 2.8 gm/dL (2.3-3.5); Glucose 352 mg/dL (74-106); Hematocrit 40.4 % (36.0-46.0); Hemoglobin 13.4 g/dL (12.0-16.0); Immature Granulocytes % (Auto) 0 % (0-0); Immature Granulocytes Auto 0.03 Thou/mm3 (0.00-0.00); LDH (Lactate Dehydrogenase) 233 U/L (120-246); Lymphocytes # (Auto) 3.6 Thou/mm3 (1.0-4.8); Lymphocytes % (Auto) 41 % (10-50); Magnesium 1.9 mg/dL (1.6-2.6); Mean Corpuscular HGB Conc 33.2 g/dl (31.0-37.0); Mean Corpuscular Hemoglobin 28.2 pg (25.0-35.0); Mean Corpuscular Volume 85 fL (80-100); Monocytes # (Auto) 0.7 Thou/mm3 (0.0-0.8); Monocytes % (Auto) 9 % (0-12); Neutrophils # (Auto) 4.1 Thou/mm3 (1.8-7.7); Neutrophils % (Auto) 47 % (37-80); Nucleated Red Blood Cell % 0 /100 WBC (0); Osmolality,Calculated 297 (275-295); Platelet Count 225 Thou/mm3 (140-440); Potassium 3.6 mMol/L (3.4-5.1); RDW Standard Deviation 43.6 fL (36.4-46.3); Red Blood Count 4.76 Miln/mm3 (4.00-5.20); Sodium 142 mMol/L (136-145); Troponin I 0.034 ng/mL (0.0-0.045); White Blood Count 8.7 Thou/mm3 (3.6-11.0); eGFR > 60 See Note
[2025-02-20] MEDS: KETOROLAC INJ 30 MG/ML VIAL 15 MG IVP (21:00)
[2025-02-20 21:07] LABS: Partial Thromboplastin Time 26.8 Seconds (22.0-36.0); Prothrombin Time 10.9 Seconds (9.0-12.2)
[2025-02-20 21:10] LABS: Bilirubin,Urine Negative (Negative); Blood,Urine Negative (Negative); Clarity,Urine Clear (Clear/Hazy); Color,Urine Colorless (Lt Yel-Yel); Glucose, Urine 4+ (Negative); Ketones,Urine Negative (Negative); Leukocyte Esterase,Urine Negative (Negative); Nitrite,Urine Negative (Negative); Protein,Urine Negative (Neg - Trace); Specific Gravity,Urine 1.042 (1.001-1.035); Urobilinogen,Urine Negative mg/dL (0.0-1.0)
[2025-02-20 21:17] LABS: Amphetamine/Methamp Scrn,U Negative (Negative); Barbiturate Screen,Urine Negative (Negative); Benzodiazepines Screen,Urine Negative (Negative); Benzoylecgonine Screen, Ur Negative (Negative); Fentanyl Screen,Urine Negative (Negative); Opiate Screen,Urine Negative (Negative); THC Screen,Urine Negative (Negative)
[2025-02-20 21:26] VITALS: BP 163/102; PULSE 87; RESP 21; O2SAT 96
[2025-02-20] MEDS: MORPHINE SULF INJ 10 MG/ML VIAL 4 MG IVP (21:45)
[2025-02-20] MEDS: ONDANSETRON INJ 2 MG/ML INJ 2 ML 4 MG IV (21:46)
[2025-02-20 22:00] VITALS: BP 174/98; PULSE 88; RESP 18; O2SAT 93
[2025-02-20 23:00] VITALS: BP 165/97; PULSE 93; RESP 17; O2SAT 93
[2025-02-20 23:19] VITALS: BP 165/97; PULSE 92; RESP 17; O2SAT 95
[2025-02-20 23:58] LABS: Troponin I 0.035 ng/mL (0.0-0.045)
[2025-02-21] VITALS: BP 139/84; PULSE 88; RESP 24; O2SAT 93
[2025-02-21 01:00] VITALS: BP 128/93; PULSE 85; RESP 15; O2SAT 95
--- NOTE | 2025-02-21 01:01 | PD.EDADDENDU ---
Emergency Room Addendum <Sintia Torres MD - Last Filed: 02/21/25 02:48> Addendum Narrative: 2300: Care assumed from SONIA Ugalde (emergency physician). Past medical, surgical, social and family history reviewed. Vitals and home medications reviewed. Results and treatment plan discussed. I will assume the care of the patient at this time and will follow the patient, pending repeat Trop Please refer to the emergency department record for history and examination from initial visit. Summary: Patient is a 61-year-old female with history of diabetes, hypertension, presenting to emergency department with chest pain. On my evaluation the patient also called complaining of dysuria. Repeat vitals show blood pressure 165/97, pulse 92, respirations 17 and 95% on room air. The patient is afebrile at 99. Review of her labs white count is 8.7, hemoglobin is 13 and 40. Platelets of 225. INR is 1.0, otherwise electrolytes are reviewed and are normal. Glucose is slightly elevated at 352. Troponin is 0.035. BNP is normal at 62. Chest x-ray possible early right pneumonia however the patient is having no symptoms at all suspect an infection. PE: Physical exam the patient is in no acute distress lying in the bed. Lungs are clear bilaterally. No rhonchi or rales. Abdomen soft nontender nondistended. Repeat troponin is 0.035 Repeat troponin0.036 which essentially unchanged. At this time the patient is stable for discharge. Since the patient is having dysuria we will treat. Patient aware she need to follow-up with her primary care in the next 22 hours To get the results of the urine culture. The patient should return sooner for worsening symptoms, any fever, she cannot tolerate liquids, Or any other concerns. Return precautions are given and understood. Diagnosis: Atypical chest pain Dysuria DISPOSITION: Emergency Department nursing documentation was reviewed including triage complaint, associated symptoms, administration of medications, response to therapy and vital signs. Given the history, physical exam, and review of any performed laboratory and imaging studies the patient is being discharged in stable condition. I advised the patient to followup with their outpatient provider for further diagnostic testing and treatments as needed. Strict return precautions were given. <Laurie Crowder - Last Filed: 02/23/25 11:43> Addendum Narrative: 2300: Care assumed from SONIA Ugalde (emergency physician). Past medical, surgical, social and family history reviewed. Vitals and home medications reviewed. Results and treatment plan discussed. I will assume the care of the patient at this time and will follow the patient, pending repeat Trop Please refer to the emergency department record for history and examination from initial visit. Summary: Patient is a 61-year-old female with history of diabetes, hypertension, presenting to emergency department with chest pain. On my evaluation the patient also called complaining of dysuria. Repeat vitals show blood pressure 165/97, pulse 92, respirations 17 and 95% on room air. The patient is afebrile at 99. Review of her labs white count is 8.7, hemoglobin is 13 and 40. Platelets of 225. INR is 1.0, otherwise electrolytes are reviewed and are normal. Glucose is slightly elevated at 352. Troponin is 0.035. BNP is normal at 62. Chest x-ray possible early right pneumonia however the patient is having no symptoms at all suspect an infection. Physical Exam: Physical exam the patient is in no acute distress lying in the bed. Lungs are clear bilaterally. No rhonchi or rales. Abdomen soft nontender nondistended. Repeat troponin is 0.035 Repeat troponin0.036 which essentially unchanged. At this time the patient is stable for discharge. Since the patient is having dysuria we will treat. Patient aware she need to follow-up with her primary care in the next 22 hours To get the results of the urine culture. The patient should return sooner for worsening symptoms, any fever, she cannot tolerate liquids, Or any other concerns. Return precautions are given and understood. Diagnosis: - Atypical chest pain - Dysuria DISPOSITION: Emergency Department nursing documentation was reviewed including triage complaint, associated symptoms, administration of medications, response to therapy and vital signs. Given the history, physical exam, and review of any performed laboratory and imaging studies the patient is being discharged in stable condition. I advised the patient to followup with their outpatient provider for further diagnostic testing and treatments as needed. Strict return precautions were given.
[2025-02-21] MEDS: cefTRIAXone/D5w 1gm IV premix 1 GM/50 ML BAG IV (01:15)
--- NOTE | 2025-02-21 01:18 | PC.NURSE ---
pt is feeling much better
--- NOTE | 2025-02-21 01:19 | PC.NURSE ---
left arm is contracted, L leg very stff difficult to bend. aware.
== END 2025-02-21 01:32 | disposition home or self-care (01) ==
PROVIDERS: Physician Assistant; Registered Nurse General Practice; Emergency Provider Emergency Medicine; PCP Nurse Practitioner Family
DX: R07.89 Other chest pain (principal); R30.0 Dysuria; E11.9 Type 2 diabetes mellitus without complications; I10 Essential (primary) hypertension
CPT/HCPCS: 36415; 71045; 80053; 80307; 81001; 83615; 83735; 83880; 84484; 85025; 85610; 85730; 93005; 99284; J0696; J1885; J2270; J2405

== ENCOUNTER → 2025-03-14 | Outpatient (CLI) | payer OTHER, MEDICAID, SELFPAY ==
--- NOTE | 2025-03-14 13:28 | XR_ITS ---
Examination: Duplex scan of the lower extremity, unilateral right complete Date and time of exam: March 14, 2025 1357 hours INDICATIONS: Right leg pain 6 months, history thrombus in the greater saphenous vein Technique: Duplex scan of the extremity veins using B-mode/grayscale imaging and Doppler spectral analysis and color flow Attention is directed to internal echogenicity, compression and augmentation involving these veins, color flow assessment, spectral analysis Findings: Major deep venous structures in the extremity demonstrate normal course and caliber. There is no evidence of deep vein thrombosis. Normal color flow and spectral analysis Impression: Negative for DVT.. Positive for thrombus in the superficial greater saphenous vein
== END | disposition home or self-care (01) ==
PROVIDERS: PCP Student in an Organized Health Care Education/Training Program; Referring Provider Student in an Organized Health Care Education/Training Program; Visit Provider Student in an Organized Health Care Education/Training Program
DX: I82.491 Acute embolism and thrombosis of other specified deep vein of right lower extremity (principal)
CPT/HCPCS: 93971

== ENCOUNTER → 2025-03-22 | Outpatient (BNVA) | payer OTHER, MEDICAID, SELFPAY | END | disposition home or self-care (01) | PROVIDERS: PCP Family Medicine; Referring Provider Family Medicine; Visit Provider Urology | DX: G89.4 Chronic pain syndrome (principal); R10.2 Pelvic and perineal pain; Z87.440 Personal history of urinary (tract) infections; E11.9 Type 2 diabetes mellitus without complications; I10 Essential (primary) hypertension; E66.9 Obesity, unspecified; Z68.35 Body mass index [BMI] 35.0-35.9, adult; Z86.73 Personal history of transient ischemic attack (TIA), and cerebral infarction without residual deficits | CPT/HCPCS: 81003; 99212; G0463 ==

== ENCOUNTER → 2025-03-31 | Outpatient (CLI) | payer OTHER, MEDICAID, SELFPAY ==
--- NOTE | 2025-03-31 15:30 | XR_ITS ---
Examination: Arterial duplex lower extremity, unilateral right Date and time of exam: Right leg pain and numbness beginning 2 months ago Findings: Duplex sonographic imaging of the lower extremity arteries using B-mode/Doyle scale imaging and Doppler spectral analysis and color flow. . Right common femoral artery demonstrates triphasic flow. Right superficial femoral artery demonstrates triphasic flow. Right popliteal artery demonstrates biphasic flow. Right posterior tibial artery demonstrated biphasic flow. Right dorsalis pedis artery flow monophasic Impression: Suspicious for obstructive arterial disease involving the right popliteal, posterior tibial and dorsalis pedis arteries Consider correlation with CTA abdominal aorta iliofemoral runoff post intravenous contrast
== END | disposition home or self-care (01) ==
PROVIDERS: PCP Student in an Organized Health Care Education/Training Program; Referring Provider Student in an Organized Health Care Education/Training Program; Visit Provider Student in an Organized Health Care Education/Training Program
DX: R22.41 Localized swelling, mass and lump, right lower limb (principal)
CPT/HCPCS: 93926

== ENCOUNTER → 2025-05-02 | Outpatient (CLI) | payer OTHER, MEDICAID, SELFPAY ==
--- NOTE | 2025-05-02 14:15 | XR_ITS ---
Examination: Foot, right, 3 views Technique: AP, oblique, lateral views foot, 3 views Date and time of exam: May 02, 2025 1418 hours INDICATIONS: Injury to the foot 2 years ago with foot pain. FINDINGS: Moderate osteoarthritis first metatarsophalangeal joint Soft tissue vascular calcification. No acute fracture 8mm plantar bony calcaneal spur IMPRESSION: 8mm plantar bony calcaneal spur
--- NOTE | 2025-05-02 14:15 | XR_ITS ---
EXAMINATION: Ankle, right 3 views . Technique: Ankle AP, oblique, lateral 3 views Date and time of exam: May 02, 2025 1418 hours INDICATIONS: Injury to the ankle 2 years ago, ankle pain. FINDINGS: Moderate osteopenia Ossification in the plantar fascia 8mm plantar bony calcaneal spur. Mild osteoarthritis tibiotalar and subtalar joints IMPRESSION: Osteoarthritis as above 8mm plantar bony calcaneal spur. Ossification in the plantar fascia
== END | disposition home or self-care (01) ==
LOC: CDIM 14:01
PROVIDERS: Referring Provider Student in an Organized Health Care Education/Training Program; Visit Provider Student in an Organized Health Care Education/Training Program
DX: M77.31 Calcaneal spur, right foot (principal); M19.071 Primary osteoarthritis, right ankle and foot; S99.911A Unspecified injury of right ankle, initial encounter; S99.921A Unspecified injury of right foot, initial encounter; X58.XXXA Exposure to other specified factors, initial encounter
CPT/HCPCS: 73610; 73630

== ENCOUNTER → 2025-05-09 | Outpatient (CLI) | payer OTHER, MEDICAID, SELFPAY ==
[2025-05-09 10:31] LABS: Collection Type, Urine Clean Catch
[2025-05-09 11:15] LABS: Basophils # (Auto) 0.1 Thou/mm3 (0.0-0.2); Basophils % (Auto) 1 % (0-2.5); Eosinophils # (Auto) 0.3 Thou/mm3 (0.0-0.5); Eosinophils % (Auto) 3 % (0-10); Hematocrit 41.0 % (36.0-46.0); Hemoglobin 13.4 g/dL (12.0-16.0); Immature Granulocytes Auto 0.05 Thou/mm3 (0.00-0.00); Lymphocytes # (Auto) 3.6 Thou/mm3 (1.0-4.8); Lymphocytes % (Auto) 34 % (10-50); Mean Corpuscular HGB Conc 32.7 g/dl (31.0-37.0); Mean Corpuscular Hemoglobin 28.0 pg (25.0-35.0); Mean Corpuscular Volume 86 fL (80-100); Monocytes # (Auto) 0.8 Thou/mm3 (0.0-0.8); Monocytes % (Auto) 8 % (0-12); Neutrophils # (Auto) 5.7 Thou/mm3 (1.8-7.7); Neutrophils % (Auto) 55 % (37-80); Nucleated Red Blood Cell # 0.00 Thou/mm3 (0.00-0.00); Nucleated Red Blood Cell % 0 /100 WBC (0); Platelet Count 228 Thou/mm3 (140-440); RDW Standard Deviation 42.2 fL (36.4-46.3); Red Blood Count 4.79 Miln/mm3 (4.00-5.20); White Blood Count 10.5 Thou/mm3 (3.6-11.0)
[2025-05-09 11:20] LABS: Glucose Estimated Average 212 mg/dL (80-131); Hemoglobin A1C 9.0 % Hgb (4.8-6.0)
[2025-05-09 11:27] LABS: Vitamin D 25 Hydroxy Total 35.7 ng/mL (7.3-40.2)
[2025-05-09 11:46] LABS: Creatinine MALB Rnd Ur 68 mg/dL (30-125); Microalbumin, Random Urine < 3 mg/L (0-300)
[2025-05-09 11:46] LABS: Alanine Aminotransferase 17 U/L (10-49); Albumin, Serum 4.2 gm/dL (3.4-4.8); Albumin/Globulin Ratio 1.4 (1.2-2.2); Alkaline Phosphatase 97 U/L (46-116); Anion Gap 11 (7-16); Aspartate Amino Transferase 18 U/L (0-34); BUN/Creatinine Ratio 24 Ratio (12-20); Bilirubin,Direct < 0.1 mg/dL (0.0-0.3); Bilirubin,Total 0.3 mg/dL (0.3-1.2); Blood Urea Nitrogen 17 mg/dL (9-23); Calcium 9.2 mg/dL (8.3-10.6); Calcium (Corrected) 9.2 mg/dL (8.5-10.1); Carbon Dioxide 27.5 mMol/L (20.0-31.0); Cardiac Risk Estimate 2.8 RATIO (3.7-5.6); Chloride 108 mMol/L (98-107); Cholesterol 132 mg/dL (132-200); Creatinine (Component) 0.7 mg/dL (0.6-1.3); Free T4 (Free Thyroxine) 1.30 ng/dL (0.89-1.76); Globulin 2.9 gm/dL (2.3-3.5); Glucose 119 mg/dL (74-106); HDL Cholesterol 48 mg/dL (40-60); LDL Cholesterol,Calculated 46 mg/dL (0-130); Osmolality,Calculated 293 (275-295); Potassium 3.9 mMol/L (3.4-5.1); Sodium 146 mMol/L (136-145); Thyroid Stimulating Hormone 1.91 uIU/mL (0.55-4.78); Total Protein 7.1 gm/dL (5.7-8.2); Triglycerides 192 mg/dL (30-150); eGFR > 60 See Note
[2025-05-09 11:54] LABS: Bilirubin,Urine Negative (Negative); Blood,Urine Negative (Negative); Budding Yeast,Urine Present; Clarity,Urine Clear (Clear/Hazy); Color,Urine Lt-Yellow (Lt Yel-Yel); Glucose, Urine 4+ (Negative); Ketones,Urine Negative (Negative); Leukocyte Esterase,Urine Negative (Negative); Nitrite,Urine Negative (Negative); PH,Urine 6.0 (5.0-7.0); Protein,Urine Negative (Neg - Trace); RBC,Urine 1 /hpf (0-3); Specific Gravity,Urine 1.036 (1.001-1.035); Squamous Epithelial Cell,Urine < 1 /hpf (0-5); Urobilinogen,Urine Negative mg/dL (0.0-1.0); WBC,Urine 1 /hpf (0-5)
== END | disposition home or self-care (01) ==
DX: E78.2 Mixed hyperlipidemia (principal); E11.65 Type 2 diabetes mellitus with hyperglycemia; E66.3 Overweight
CPT/HCPCS: 36415; 80053; 80061; 81001; 82043; 82248; 82306; 82570; 83036; 84439; 84443; 85025

== ENCOUNTER 2025-05-24 17:37 | Emergency (ER) | payer OTHER, MEDICAID, SELFPAY ==
[2025-05-24 17:50] VITALS: PULSE 92; RESP 18; O2SAT 97
--- NOTE | 2025-05-24 17:50 | PC.NURSE ---
pt to er via ems with c/o mid chest pain radiates to the back and down left arm x1 hour. from clinic
--- NOTE | 2025-05-24 17:57 | PD.EDCHEST ---
ED Chest Pain RME/HPI General Chief Complaint: Chest Pain Stated Complaint: CHEST PAIN Time Seen by Provider: 05/24/25 17:55 Source: patient, family and EMS Arrival date/time: 05/24/25 17:37 Mode of arrival: EMS Limitations: no limitations RME / HPI RME / HPI narrative: Patient is a 65-year-old female who is brought in by EMS for chest pain. She was in clinic today for follow-up for diabetes when she had a disagreement regarding the management of her diabetes with the clinician there. Afterwards, she developed dyspnea, chest pain, and anxiety. She has a history of diabetes, hypertension, and hyperlipidemia. No history of ACS or pulmonary emboli. She denies any syncopal episodes or falls. No fevers or chills. No abdominal pain, nausea, vomiting. She has no urinary complaints. She has no other acute complaints at this time. Related Data Home Medications ?Medication ?Instructions ?Recorded ?Confirmed losartan 50 mg tablet (Cozaar) 50 mg PO QDAY 02/24/23 03/22/25 atorvastatin 80 mg tablet 80 mg PO QDAY 10/01/24 03/22/25 amitriptyline 25 mg tablet 25 mg PO QDAY 10/14/24 03/22/25 docusate sodium 250 mg capsule 250 mg PO QDAY 10/14/24 03/22/25 empagliflozin 25 mg tablet 25 mg PO QAM 10/14/24 03/22/25 (Jardiance) fenofibrate 160 mg tablet 160 mg PO QDAY 10/14/24 03/22/25 insulin human U-100 NPH-regulr subcut 10/14/24 03/22/25 70-30 mix 100 unit/mL subcutaneous susp (Humulin 70/30 U-100 Insulin) pantoprazole 40 mg tablet,delayed 40 mg PO QDAY 10/14/24 03/22/25 release tramadol 50 mg tablet 50 mg PO Q6H PRN Pain 10/14/24 03/22/25 estradiol 0.01% (0.1 mg/gram) 2 g vaginal .PRN 03/22/25 03/22/25 vaginal cream (Estrace) mirabegron 50 mg tablet,extended 50 mg PO QDAY 03/22/25 03/22/25 release 24 hr (Myrbetriq) sitagliptin phosphate 50 1 tab PO BID 03/22/25 03/22/25 mg-metformin 500 mg tablet (Janumet) Previous Rx's ?Medication ?Instructions ?Recorded ibuprofen 800 mg tablet 800 mg PO TID PRN pain #30 tabs 07/25/23 Allergies Allergy/AdvReac Type Severity Reaction Status Date / Time No Known Allergies Allergy Verified 03/22/25 08:35 Review of Systems Review of Systems Systems Reviewed: All systems reviewed, normal except as documented ED Exam General Limitations: Present no limitations General appearance: Present alert and in no apparent distress Head Head exam: Present atraumatic Eye Eye exam: Present normal appearance, PERRL and EOMI ENT ENT exam: Present normal exam, normal oropharynx and mucous membranes moist Neck Neck exam: Present normal inspection, full ROM and trachea midline Chest Chest inspection: Present normal inspection and symmetric chest wall rise Respiratory Respiratory exam: Present normal lung sounds bilaterally Cardiovascular Cardiovascular exam: Present regular rate, normal rhythm and normal heart sounds Abdominal Exam Abdominal exam: Present soft and normal bowel sounds Extremities Exam Extremities exam: Present normal inspection and full ROM Back Exam Back exam: Present normal inspection and full ROM Neurological Exam Neurological exam: Present alert and oriented X3 Psychiatric Psychiatric exam: Present anxious Skin Skin exam: Present warm, dry, intact and normal color Course Quality Measures none Orders Category Date Time Status Editor Sound Q4H START 00 Care 05/24/25 18:13 Active EKG (ED ONLY) *Do not use* NOW Care 05/24/25 18:06 Completed EKG (ED Only) Stat Exams 05/24/25 18:06 Draft XR chest 1V Stat Exams 05/24/25 18:42 Completed BNP [B-Type Natriuretic Peptide] Stat Lab 05/24/25 18:52 Completed CBC Stat Lab 05/24/25 18:52 Completed CMP [Comprehensive Metabolic Panel] Stat Lab 05/24/25 18:52 Completed Lipase Stat Lab 05/24/25 18:52 Completed Mag [Magnesium] Stat Lab 05/24/25 18:52 Completed Troponin I Stat Lab 05/24/25 18:52 Completed Diazepam Inj [Valium Inj] Med 05/24/25 18:42 Discontinued 5 mg IVP X1 ONE Vital Signs Vital signs: Vital Signs Temperature 98.7 F 05/24/25 18:01 Pulse Rate 90 05/24/25 18:01 Respiratory Rate 16 05/24/25 18:01 Blood Pressure 122/79 05/24/25 18:01 Pulse Oximetry (%) 93 L 05/24/25 18:01 Oxygen Delivery Method Room Air 05/24/25 18:01 Chest Pain MDM Narrative MDM Narrative:: Patient is a 65-year-old female who is brought in by EMS for chest pain. She was in clinic today for follow-up for diabetes when she had a disagreement regarding the management of her diabetes with the clinician there. Afterwards, she developed dyspnea, chest pain, and anxiety. She has a history of diabetes, hypertension, and hyperlipidemia. No history of ACS or pulmonary emboli. She denies any syncopal episodes or falls. No fevers or chills. No abdominal pain, nausea, vomiting. She has no urinary complaints. She has no other acute complaints at this time. On exam, patient is nontoxic-appearing. Vital signs are stable. She is anxious appearing. Workup here is unremarkable with exception of her glucose which is 213. Patient was given a dose of Valium and is feeling better. We discussed her test results. Patient be discharged in the ER. She is asked to follow-up in clinic for a recheck. Return as needed for worsening emergent changes. Patient data External records reviewed:: None Clinical information provided by:: patient and family Social determinants that could affect healthcare access:: mental health Patient has the following chronic illnesses:: Hypertension, diabetes, anxiety How is presenting disease/condition affected by chronic disease/condition?: exacerbated by Evaluation data The following diagnostics were reviewed and interpreted by me:: lab results, radiology exam(s) and EKG tracing(s) (Normal sinus rhythm at [address] changes or dynamic T waves.) Lab and/or radiology exams considered but not ordered:: n/a Interpretation Summary: Anxiety Medications / Prescriptions Medications or Prescriptions considered but not ordered:: na Medication administrations:: Medication Administration History Discontinued Medications Diazepam (Diazepam Inj 5 Mg/Ml Vial 2 Ml) 5 mg IVP X1 ONE Stop: 05/24/25 18:43 Last Admin: 05/24/25 18:55 Dose: 5 mg Documented By: JANELLE See above Consultations Consultation(s) initiated? (list below): No Diagnosis Chest Pain Differential Diagnosis: pneumothorax, st elevation myocardial infarction and chest pain Most likely diagnosis given after review of the tests above:: Anxiety reaction Admission Indicated Admission indicated?: not indicated Admission Request Was there a request for admission?: No Disposition Plan Disposition Plan: Discharge Discharge Attestation Discharge Attestation: The patient and all family members were given an opportunity to ask questions and understood the discharge instructions. Discharge instructions specifically effects, indications for sooner follow up or return to the emergency department, and the expected course of current diagnosis. Patient condition: Stable Discharge Plan Plan Patient Disposition: HOME (Self Care) Patient condition on transfer: Stable Prescriptions/Referrals Prescriptions/Med Rec: No Action Janumet 50-500 mg tablet 1 tab PO BID estradiol [Estrace] 0.01 % (0.1 mg/gram) cream 2 g vaginal .PRN Patient Comments: Twice a week mirabegron [Myrbetriq] 50 mg tablet extended release 24 hr 50 mg PO QDAY Humulin 70/30 U-100 Insulin 100 unit/mL (70-30) Suspension SUBCUT tramadol 50 mg Tablet 50 mg PO Q6H PRN (Reason: Pain) amitriptyline 25 mg Tablet 25 mg PO QDAY pantoprazole 40 mg Tablet,Delayed Release (Dr/Ec) 40 mg PO QDAY docusate sodium 250 mg Capsule 250 mg PO QDAY fenofibrate 160 mg Tablet 160 mg PO QDAY Jardiance 25 mg Tablet 25 mg PO QAM losartan [Cozaar] 50 mg Tablet 50 mg PO QDAY ibuprofen 800 mg tablet 800 mg PO TID PRN (Reason: pain) Qty: 30 0RF atorvastatin 80 mg tablet 80 mg PO QDAY Patient Comments: TOME 1 TABLETA POR V A ORAL TODOS LOS D AL 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 - Please follow-up with your primary clinic regarding management of your diabetes. - Please return as needed for any worsening or emergent changes. Print Language: Upper Sorbian Stand Alone Forms: [employer] Award Info., Patient Portal Info Letter
[2025-05-24 18:01] VITALS: BP 122/79; PULSE 90; RESP 16; TEMP 37.1; O2SAT 93
--- NOTE | 2025-05-24 18:06 | EKG_ITS ---
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
[2025-05-24 18:13] VITALS: PULSE 83
--- NOTE | 2025-05-24 18:42 | XR_ITS ---
Examination: AP chest single view TECHNIQUE: Portable AP sitting chest single view Date and time: May 24, 2025 1859 hours Comparison February 20, 2025 INDICATIONS: Onset chest pain today FINDINGS: Minimal prominence of ventricle Mild vascular congestion. No lobar pneumonia or pulmonary edema. Moderate osteopenia Moderate narrowing glenohumeral joints IMPRESSION: Mild vascular congestion
[2025-05-24] MEDS: DIAZEPAM INJ 5 MG/ML VIAL 2 ML IVP (18:55)
[2025-05-24 19:00] LABS: Basophils # (Auto) 0.1 Thou/mm3 (0.0-0.2); Basophils % (Auto) 0 % (0-2.5); Eosinophils # (Auto) 0.3 Thou/mm3 (0.0-0.5); Eosinophils % (Auto) 3 % (0-10); Hematocrit 43.5 % (36.0-46.0); Hemoglobin 14.0 g/dL (12.0-16.0); Immature Granulocytes Auto 0.04 Thou/mm3 (0.00-0.00); Lymphocytes # (Auto) 4.1 Thou/mm3 (1.0-4.8); Lymphocytes % (Auto) 36 % (10-50); Mean Corpuscular HGB Conc 32.2 g/dl (31.0-37.0); Mean Corpuscular Hemoglobin 27.8 pg (25.0-35.0); Mean Corpuscular Volume 87 fL (80-100); Monocytes # (Auto) 1.1 Thou/mm3 (0.0-0.8); Monocytes % (Auto) 9 % (0-12); Neutrophils # (Auto) 6.0 Thou/mm3 (1.8-7.7); Neutrophils % (Auto) 52 % (37-80); Nucleated Red Blood Cell # 0.00 Thou/mm3 (0.00-0.00); Nucleated Red Blood Cell % 0 /100 WBC (0); Platelet Count 250 Thou/mm3 (140-440); RDW Standard Deviation 43.5 fL (36.4-46.3); Red Blood Count 5.03 Miln/mm3 (4.00-5.20); White Blood Count 11.6 Thou/mm3 (3.6-11.0)
[2025-05-24 19:19] LABS: B-Type Natriuretic Peptide 61 pg/mL (0-100)
[2025-05-24 19:26] VITALS: BP 135/90; PULSE 87; RESP 20; TEMP 36.8; O2SAT 94
[2025-05-24 19:28] LABS: Alanine Aminotransferase 23 U/L (10-49); Albumin, Serum 4.3 gm/dL (3.4-4.8); Albumin/Globulin Ratio 1.3 (1.2-2.2); Alkaline Phosphatase 119 U/L (46-116); Anion Gap 10 (7-16); Aspartate Amino Transferase 21 U/L (0-34); BUN/Creatinine Ratio 14 Ratio (12-20); Bilirubin,Total 0.4 mg/dL (0.3-1.2); Blood Urea Nitrogen 11 mg/dL (9-23); Calcium 9.5 mg/dL (8.3-10.6); Calcium (Corrected) 9.5 mg/dL (8.5-10.1); Carbon Dioxide 26.7 mMol/L (20.0-31.0); Chloride 105 mMol/L (98-107); Creatinine (Component) 0.8 mg/dL (0.6-1.3); Globulin 3.3 gm/dL (2.3-3.5); Glucose 213 mg/dL (74-106); Lipase 33 U/L (12-53); Magnesium 2.0 mg/dL (1.6-2.6); Osmolality,Calculated 288 (275-295); Potassium 4.5 mMol/L (3.4-5.1); Sodium 142 mMol/L (136-145); Total Protein 7.6 gm/dL (5.7-8.2); Troponin I 0.020 ng/mL (0.0-0.045); eGFR > 60 See Note
== END 2025-05-24 20:26 | disposition home or self-care (01) ==
PROVIDERS: Physician Assistant Medical; Emergency Provider Emergency Medicine
DX: F41.9 Anxiety disorder, unspecified (principal); I10 Essential (primary) hypertension; E78.5 Hyperlipidemia, unspecified; R07.9 Chest pain, unspecified; R94.31 Abnormal electrocardiogram [ECG] [EKG]
CPT/HCPCS: 36415; 71045; 80053; 83690; 83735; 83880; 84484; 85025; 93005; 96374; 99283; J3360

== ENCOUNTER → 2025-06-24 | Outpatient (CLI) | payer OTHER, MEDICAID, SELFPAY ==
--- NOTE | 2025-06-24 13:15 | XR_ITS ---
Examination: Screening digital mammography, bilateral Computer aided detection 3-D breast Tomosynthesis, bilateral Date and time of exam: 06/24/2025, 1246 Comparisons: April 2019 through February 2024 Indications: Screening Technique: Nonmagnified MLO, CC views of the breasts to been obtained, reconstructed from 3-D Tomosynthesis images. R2 computer aided detection program utilized for evaluation of suspicious masses and/or abnormal calcifications. 3-D Tomosynthesis images obtained. Technologist: Findings: There are scattered areas of fibroglandular density. No evidence of abnormal masses or suspicious calcifications. Impression: BI-RADS category 1: Negative findings (within normal) Recommend 1 year follow-up mammogram
--- NOTE | 2025-06-24 13:40 | XR_ITS ---
Examination: Bone densitometry Date and time of exam:June 24, 2025, 1305 hours INDICATIONS: Menopause age 52 hysterectomy 10 years ago Technique: Lumbar spine and hip total bone mineralization values of an calculated. Peak reference and age match control results have been displayed. Findings: Lumbar spine total bone mineralization is0.913 gm/cm2. This is 1.2 standard deviations below peak reference. This is 0.6 standard deviations above age-matched controls. Hip total bone mineralization is 0.939 gm/cm2 This is 0.2 standard deviations below peak reference. This is 1. standard deviations above age-matched controls Impression: There is osteopenia based on lumbar spine measurements. There is osteopenia based on hip measurements Lumbar mineralization is decreased 2.1% compared with May 27, 2023. Hip mineralization is decreased 4.4% compared with May 27, 2023.
== END | disposition home or self-care (01) ==
PROVIDERS: PCP Nurse Practitioner Family; Referring Provider Nurse Practitioner Family; Visit Provider Nurse Practitioner Family
DX: Z12.31 Encounter for screening mammogram for malignant neoplasm of breast (principal); R92.313 Mammographic fatty tissue density, bilateral breasts; M85.89 Other specified disorders of bone density and structure, multiple sites
CPT/HCPCS: 77063; 77067; 77080

== ENCOUNTER → 2025-09-08 | Outpatient (CLI) | payer OTHER, MEDICAID, SELFPAY ==
--- NOTE | 2025-09-08 | XR_ITS ---
Examination: Abdomen sonogram, complete Date and time of exam: September 08, 2025, 1202 hours INDICATIONS: Abdominal distention burning sensation beginning 4 days ago.. Technique: Multiple real-time grayscale transabdominal sonographic images of the abdomen have been obtained. Findings: Absent gallbladder Normal common bile duct 0.4 cm Pancreatic head 2.5 cm Aorta not enlarged. Liver 15.1 cm no focal liver lesions Normal hepatopetal portal venous flow Patent IVC Right kidney 9.1 cm renal cortex 1.8 cm Left kidney 10.2 cm renal cortex 2.2 cm Spleen 8.4 cm IMPRESSION: Normal common bile duct No focal liver lesions
== END | disposition home or self-care (01) ==
LOC: CDIM 10:58
PROVIDERS: PCP Nurse Practitioner Family; Referring Provider Nurse Practitioner Family; Visit Provider Nurse Practitioner Family
DX: R10.9 Unspecified abdominal pain (principal); R19.02 Left upper quadrant abdominal swelling, mass and lump
CPT/HCPCS: 76700